=== PATIENT | male | born 1985 | race Caucasian/White ===

== ENCOUNTER 2016-03-19 11:04 | Emergency (ER) | payer OTHER ==
[2016-03-19] MEDS ORDERED: IBUPROFEN 600 MG TABLET ONE (11:38)
--- NOTE | 2016-03-19 12:37 | RAD ---
HAND-RIGHT 3 VIEWS COMPARISON: None HISTORY: Smashed right hand with a sledgehammer while at work. Initial encounter. FINDINGS: Views: Right hand PA, oblique, lateral Bones: Comminuted fracture with minimal displacement, distal right fifth metacarpal. Joints: Normal Soft tissues: Normal IMPRESSION: Comminuted fracture with minimal displacement, distal right fifth metacarpal.
== END 2016-03-19 13:07 | disposition home or self-care (01) ==
LOC: ED 11:04
DX: S62.396A Other fracture of fifth metacarpal bone, right hand, initial encounter for closed fracture (principal); W27.8XXA Contact with other nonpowered hand tool, initial encounter; Y93.H3 Activity, building and construction; Y92.69 Other specified industrial and construction area as the place of occurrence of the external cause; Y99.0 Civilian activity done for income or pay
CPT/HCPCS: 73130; 99283 ×2; 26605 ×2; A9270